=== PATIENT | male | born 1965 | race Caucasian/White ===

== ENCOUNTER → 2016-12-24 | Outpatient (CLI) | payer OTHER ==
[~2016-12-24] MED LIST: INDOCIN PO; LORTAB; NO MEDICATIONS; PRED-PAK PO; TYLENOL #3 PO; VICODIN 5/1 TAB 5/50 PO; [UNRECOGNIZED DRUG - REMARK]
--- NOTE | ~2016-12-24 | CR281 ---
[facility] A Service of [facility] & [facility] RADIOLOGY TEXT RESULTS PATIENT: CHRISTOFER PRETTY LOCATION: [facility] : 61 UNIT #: [id number] AGE: [address]: Behzad Palm MD SEX: M ORDER DR: [id number] [facility] [address] [place], [place] [address] [id number] O MR#: [id number] Acc #: [id number] NAME: CHRISTOFER PRETTY : 1965 SEX: M STUDY DATE/TIME: 12/24/2016 9:48 UNIT: [facility] ROOM: STUDY DESCRIPTION: CR Wrist Min 3 View Lt Attending Physician: Behzad Palm M.D. Referring Physician: Behzad Palm M.D. Ordering Physician: Behzad Palm M.D. Primary Care Physician: Behzad Palm M.D. MEDICAL IMAGING REPORT This report is preliminary unless electronic signature is present EXAM Left wrist 3 views, 12/24/2016 HISTORY Left wrist pain medial aspect of the left wrist for 2 weeks with no known injury. FINDINGS Wrist evaluation in multiple projections shows normal mineralization of the bony structures about the wrist and satisfactory articular relationship of the radius and ulna to the proximal carpal row and of the distal carpal segments to the metacarpal bases. There is no indication of fracture or dislocation, and no soft tissue radiopaque foreign body is present. No congenital defects are apparent. IMPRESSION Normal left wrist. Dictated by... Tacho Dillon M.D. THIS IS AN ELECTRONICALLY VERIFIED REPORT Tacho Dillon M.D. at 12/25/2016 8:11 AM SIXTO/iwona TD: 12/24/2016 12:20 JOB #: [id number] MEDICAL IMAGING REPORT Page 1 of 1 COPY
== END | disposition home or self-care (01) ==
LOC: CRAD 09:15
DX: M25.532 Pain in left wrist (principal)
CPT/HCPCS: 73110

== ENCOUNTER → 2017-01-06 | Outpatient (CLI) | payer OTHER ==
--- NOTE | ~2017-01-06 | CR181 ---
[facility] A Service of [facility] & [facility] RADIOLOGY TEXT RESULTS PATIENT: CHRISTOFER PRETTY LOCATION: [facility] : 61 UNIT #: [id number] AGE: [address]: Behzad Palm MD SEX: M ORDER DR: [id number] [facility] [address] [place], [place] [address] [id number] O MR#: [id number] Acc #: [id number] NAME: CHRISTOFER PRETTY : 1965 SEX: M STUDY DATE/TIME: 01/06/2017 9:58 UNIT: [facility] ROOM: STUDY DESCRIPTION: CR Lumbar Spine 2 or 3 Views Attending Physician: Behzad Palm M.D. Referring Physician: Behzad Palm M.D. Ordering Physician: Behzad Palm M.D. Primary Care Physician: Behzad Palm M.D. MEDICAL IMAGING REPORT This report is preliminary unless electronic signature is present EXAM Lumbar spine, 01/06/2017 HISTORY 51-year-old male with low back pain for 3 months. No specific injury. COMPARISON None. FINDINGS 3 views of the lumbar spine demonstrate no acute fracture or subluxation. Vertebral body heights and alignment are normally maintained. Disc spaces are maintained. Facets are unremarkable. Sacrum and SI joints intact. IMPRESSION Unremarkable lumbar spine. Dictated by... Rylan Yung M.D. THIS IS AN ELECTRONICALLY VERIFIED REPORT Rylan Yung M.D. at 01/07/2017 4:10 PM ADDY/raquel TD: 01/07/2017 00:54 JOB #: [id number] MEDICAL IMAGING REPORT Page 1 of 1 COPY
== END | disposition home or self-care (01) ==
LOC: CRAD 09:34
DX: M54.5 Low back pain (principal)
CPT/HCPCS: 72100